=== PATIENT | female | born 2000 ===

== ENCOUNTER 2023-05-02 15:05 | Emergency (ER) | payer SELFPAY ==
[2023-05-02 17:42] LABS: #Monocytes 0.5 10x3/uL (0.0-1.1); #Neutrophils 2.5 10x3/uL (1.5-8.4); %Basophils 0.6 % (0.0-2.0); %Eosinophils 0.6 % (0.0-6.0); %Lymphocytes 39.5 % (18.0-47.0); %Monocytes 9.3 % (0.0-10.0); %Neutrophils 49.8 % (40.0-75.0); Hematocrit 40.7 % (34.9-44.5); Hemoglobin 12.7 g/dL (12.0-15.5); Mean Corpuscular HGB CONC 31.2 g/dL (32.0-36.0); Mean Corpuscular Hemoglobin 28.3 pg (27.0-33.0); Mean Corpuscular Volume 90.8 fl (81.6-98.3); Platelet Count 229 10x3/uL (150-450); RBC Distribution Width 12.9 % (11.5-14.5); Red Blood Cell (RBC) Count 4.48 10x6/uL (3.90-5.03)
[2023-05-02 17:43] LABS: ALT (SGPT) 13 U/L (8-55); AST (SGOT) 17 U/L (5-34); Albumin 4.3 g/dL (3.5-5.0); Alkaline Phosphatase 48 U/L (40-110); Anion Gap 11 mmol/L (10-20); BUN (Urea Nitrogen) 6 mg/dL (7.0-18.7); Bilirubin, Total 1.3 mg/dL (0.2-1.2); Calc. Creatinine Clearance 0 mL/min (70-130); Calcium 9.6 mg/dL (7.8-10.44); Carbon Dioxide 28 mmol/L (22-29); Chloride 103 mmol/L (98-107); Estimated GFR 108; Globulin 3.4 g/dL (2.4-3.5); Glucose 81 mg/dL (70-105); Potassium 3.9 mmol/L (3.5-5.1); Protein, Total 7.7 g/dL (6.0-8.3); Sodium 138 mmol/L (136-145)
== END 2023-05-02 18:12 | disposition home or self-care (01) ==
LOC: CSHERS 15:05
DX: H00.016 Hordeolum externum left eye, unspecified eyelid (principal); R23.3 Spontaneous ecchymoses; G43.909 Migraine, unspecified, not intractable, without status migrainosus
CPT/HCPCS: 80053; 85025; 99283